=== PATIENT | male | born 1965 | race Caucasian/White ===

== ENCOUNTER → 2020-07-16 17:31 | Outpatient (CLI) | payer BC, SELFPAY ==
[2020-07-18 22:35] LABS: Covid-19 Nasal PCR Sendout Lex Not Detected
== END ==
PROVIDERS: PCP Family Medicine; Visit Provider Nurse Practitioner
DX: Z03.818 Encounter for observation for suspected exposure to other biological agents ruled out (principal)
CPT/HCPCS: U0004

== ENCOUNTER → 2021-02-04 08:49 | Outpatient (POV) | payer BC, SELFPAY | PROVIDERS: Visit Provider Dermatology | DX: Z00.00 Encounter for general adult medical examination without abnormal findings (principal) ==

== ENCOUNTER → 2021-12-13 12:18 | Outpatient (CLI) | payer OTHER, SELFPAY | PROVIDERS: Visit Provider Nurse Practitioner | DX: U07.1 COVID-19 (principal) | CPT/HCPCS: C9803; U0003; U0005 ==

== ENCOUNTER → 2021-12-20 09:43 | Outpatient (CLI) | payer OTHER, SELFPAY | PROVIDERS: Visit Provider Nurse Practitioner | DX: Z20.822 Contact with and (suspected) exposure to COVID-19 (principal) | CPT/HCPCS: C9803; U0003; U0005 ==

== ENCOUNTER 2023-01-07 17:36 | Emergency (ER) | payer BC, SELFPAY ==
[2023-01-07 17:50] VITALS: BP 122/88; PULSE 80; RESP 20; TEMP 37; O2SAT 94; BMI 31.3
--- NOTE | 2023-01-07 18:04 | EXP.UTC ---
Discharge Plan Disposition Patient Disposition: Home, Self-Care Condition: Good Prescriptions Prescriptions: New benzonatate 100 mg capsule 100 mg PO TID PRN (Reason: cough) Qty: 30 0RF guaifenesin [Mucinex] 600 mg tablet extended release 12hr 600 mg PO BID PRN (Reason: cough/congestion) Qty: 20 0RF azithromycin [Zithromax Z-Mickey] 250 mg tablet See Rx Instructions .ROUTE .COMPLEX 5 Days Qty: 6 0RF Rx Instructions: For 250 mg dose pack: take 500 mg today (day 1), then 250 mg for 4 days (days 2-5) prednisone [prednisone] 20 mg tablet 20 mg PO BID 5 Days Qty: 10 0RF albuterol sulfate [Proventil HFA] 90 mcg/actuation HFA aerosol inhaler 1 inh inhalation Q6H PRN (Reason: shortness of breath or wheezing) Qty: 8.5 0RF Referrals Follow up/Referrals: Louise Schmidt MD [Primary Care Provider] - See instructions Activity Restrictions/Add. Instructions Additional Instructions/Restrictions: Start antibiotic today. Be sure to complete entire prescription even if feeling better Monitor temp. Tylenol every 4 hours as needed and / or ibuprofen every 6 hours as needed ( As long as your primary care physician has told you that it ok to take both. For fever/aches/pains ER if no less than 101 despite Tylenol or Motrin Humidifier/vaporizer or hot steamy shower Inhaler every 4-6 hours as needed like we discussed. If unsure how to use it, ask pharmacist to demonstrate how. Should help open airways and improve cough, wheezing, and shortness of breath Mucinex during the day for your cough and cough suppressant only at night. Be sure to drink lots of water. *Tessalon Perles will not cause drowsiness but use at bedtime to help stop cough so that you may get some rest. *Start steroid today. Helps with inflammation therefore, cough and wheezing. Follow directions on the package. Reviewed side effects. Patient reports taking them before. Follow up IMMEDIATELY for new or worsening of symptoms OR no noticeable improvement over the next 48-72 hours. 911 immediately for any life threatening symptoms such as chest pain or difficulty breathing Clinical Impressions Clinical Impression: Sinusitis, Bronchitis Stand Alone Forms Stand Alone Forms: Work/School Release Instructions Patient Instructions: DI for Sinusitis, Sinusitis, Acute Bronchitis Discharge ED Provider: Kiley Tamez [facility] HPI General Stated complaint: cough mirta Mode of Arrival: Ambulatory Source of Information: Patient Limitations: No Limitations Time Seen by Provider: 01/07/23 18:04 Description of Symptoms (Recalled from Triage Doc. by RN): PATIENT C/O COUGH, COLD, HEADACHE, AND FEVERISH HEENT Symptoms (Recalled from RN notes): Yes Resp Symptoms (Recalled from RN notes): No Skin Symptoms (Recalled from RN notes): No MS Symptoms (Recalled from RN notes): No Functional Status (Recalled from RN notes): WNL History of Present Illness Provider Complaint: Patient states that he has been not feeling well for about a week States that he has been having cough, sinus congestion and pressure scratchy throat and feeling feverish States that he feels like he does when has a bad sinus infection and it is trying to turn into Bronchitis or something Related Data Previous Rx's Medication Instructions Recorded albuterol sulfate 90 mcg/actuation 1 inh inhalation Q6H PRN shortness 01/07/23 aerosol inhaler (Proventil HFA) of breath or wheezing #8.5 grams azithromycin 250 mg tablet See Rx Instructions PO .COMPLEX 5 01/07/23 (Zithromax Z-Mickey) days #6 tabs benzonatate 100 mg capsule 100 mg PO TID PRN cough #30 caps 01/07/23 guaifenesin 600 mg tablet, 600 mg PO BID PRN cough/congestion 01/07/23 extended release 12 hr (Mucinex) #20 tabs prednisone 20 mg tablet 20 mg PO BID 5 days #10 tabs 01/07/23 Allergies Allergy/AdvReac Type Severity Reaction Status Date / Time Penicillins Allergy Verified
[2023-01-07 18:20] VITALS: BP 122/88; PULSE 80; RESP 20; TEMP 37; O2SAT 94
== END 2023-01-07 18:25 | disposition home or self-care (01) ==
PROVIDERS: Emergency Provider Nurse Practitioner; PCP Family Medicine
DX: J32.9 Chronic sinusitis, unspecified (principal); J40 Bronchitis, not specified as acute or chronic
CPT/HCPCS: 99212; 99214; G0463

== ENCOUNTER → 2023-10-26 15:18 | Outpatient (POV) | payer BC, SELFPAY | PROVIDERS: PCP Family Medicine; Visit Provider Dermatology | DX: Z00.00 Encounter for general adult medical examination without abnormal findings (principal) ==

== ENCOUNTER 2023-12-15 16:41 | Emergency (ER) | payer BC, SELFPAY ==
[2023-12-15 17:00] VITALS: BP 119/78; PULSE 114; RESP 18; TEMP 37.8; O2SAT 97; BMI 31.1
--- NOTE | 2023-12-15 17:00 | EXP.UTC ---
Discharge Plan Disposition Patient Disposition: Home, Self-Care Condition: Good Prescriptions Prescriptions: New benzonatate [benzonatate] 100 mg capsule 100 mg PO TIDP PRN (Reason: Cough) Qty: 30 0RF oseltamivir [Tamiflu] 75 mg capsule 75 mg PO BID Qty: 10 0RF methylprednisolone 4 mg Tablets,Dose Pack 4 mg PO DIRECTED 6 Days Qty: 21 0RF Rx Instructions: Take 1 pack as directed for 6 days cefdinir 300 mg capsule 300 mg PO BID Qty: 20 0RF ondansetron 4 mg Tablet,Disintegrating 4 mg PO Q8H PRN (Reason: Nausea) Qty: 12 0RF No Action albuterol sulfate [Proventil HFA] 90 mcg/actuation HFA aerosol inhaler 1 inh inhalation Q6H PRN (Reason: shortness of breath or wheezing) Qty: 8.5 0RF rosuvastatin 20 mg tablet 20 mg PO DAILY Patient Comments: TAKE ONE TABLET BY MOUTH EVERY DAY Referrals Follow up/Referrals: Louise Schmidt MD [Primary Care Provider] - See instructions Activity Restrictions/Add. Instructions Additional Instructions/Restrictions: Drink plenty of fluids. Take tylenol or ibuprofen for pain or fever. Take the medications as directed. Follow up with your regular doctor. GO TO THE ER FOR ANY WORSENING SYMPTOMS Clinical Impressions Clinical Impression: Influenza B, Bronchitis Stand Alone Forms Stand Alone Forms: Work/School Release Instructions Patient Instructions: DI for Influenza -- Adult, Oseltamivir Discharge ED Provider: Oscar Washington [facility] General Stated complaint: chills, h/a Time Seen by Provider: 12/15/23 17:00 History of Present Illness Provider Complaint: He states that he has had fever, chills, body aches, and malaise since early this morning. He has been exposed to influenza. Also, he states that he has had a productive cough for the past 2 weeks. Related Data Home Medications Medication Instructions Recorded Confirmed rosuvastatin 20 mg tablet 20 mg PO DAILY 12/15/23 12/15/23 Previous Rx's Medication Instructions Recorded albuterol sulfate 90 mcg/actuation 1 inh inhalation Q6H PRN shortness 01/07/23 aerosol inhaler (Proventil HFA) of breath or wheezing #8.5 grams benzonatate 100 mg capsule 100 mg PO TIDP PRN Cough #30 caps 12/15/23 cefdinir 300 mg capsule 300 mg PO BID #20 caps 12/15/23 methylprednisolone 4 mg tablets in 4 mg PO DIRECTED 6 days #21 tabs 12/15/23 a dose pack ondansetron 4 mg disintegrating 4 mg PO Q8H PRN Nausea #12 tabs 12/15/23 tablet oseltamivir 75 mg capsule (Tamiflu) 75 mg PO BID #10 caps 12/15/23 Allergies Allergy/AdvReac Type Severity Reaction Status Date / Time Penicillins Allergy Verified 12/15/23 17:13 [facility] Disclaimer: The information contained in this section may have been updated after the patient was seen, as this information can be updated by other users. Social History Smoking Status: Never smoker alcohol intake: never current occupational status: employed Travel in the last 8 weeks: None ROS Obtained: Yes All systems reviewed & no additional complaints except as documented Constitutional Constitutional: Reports chills and Reports fever(s) Eyes Eyes: Denies eye discharge ENT Ears, Nose, Mouth, and Throat: Reports as per HPI Cardiovascular Cardiovascular: Denies chest pain Respiratory Respiratory: Denies shortness of breath, Reports chest congestion, Reports cough, Denies stridor and Denies wheezing Gastrointestinal Gastrointestingal: Reports nausea; Denies abdominal pain, constipation, cramping, diarrhea or vomiting Musculoskeletal Musculoskeletal: Denies arthralgias Integumentary/Breasts Skin/Breast: Denies rash Neurologic Neurologic: Denies paresthesias Allergic/Immunologic Allergic/Immunologic: Denies wheezing Physical Exam General General appearance: alert and in no apparent distress Eye Eye exam: Present normal appearance, PERRL and EOMI ENT ENT exam: Present mucous membranes moist and normal external ear exam Expanded ENT Exam External ear exam: Present normal external inspection TM/Canal exam: Bilateral TM: erythema and bulging Nose exam: Absent sinus tenderness Nasal speculum exam: Bilateral: normal Mouth exam: Present normal external inspection; Absent drooling Teeth exam: Present normal inspection Throat exam: Present tonsillar erythema and tonsillomegaly Neck Neck exam: Present normal inspection, full ROM and trachea midline; Absent tenderness, lymphadenopathy or thyromegaly Chest Chest inspection: Present normal inspection and symmetric chest wall rise; Absent tenderness or rash Respiratory Respiratory exam: Present normal lung sounds bilaterally; Absent respiratory distress, wheezes, stridor or accessory muscle use Cardiovascular Cardiovascular exam: Present regular rate, normal rhythm and normal heart sounds Abdominal Exam Abdominal exam: Present soft; Absent distention, tenderness, guarding, rebound or rigidity Extremities Exam Extremities exam: Present normal inspection, full ROM and normal capillary refill; Absent tenderness or calf tenderness Back Exam Back exam: Present normal inspection and full ROM; Absent tenderness Neurological Exam Neurological exam: Present alert and oriented X3 Psychiatric Psychiatric exam: Present normal affect and normal mood Skin Skin exam: Present warm, dry, intact and normal color Lymphatic Lymphatic Findings: no adenopathy Medical Decision Making Medical Records Medical records reviewed: No I reviewed the patient's medical records. Girma Inquiry Pt receiving controlled substance: No Lab Data Lab results reviewed: Yes I reviewed the patient's lab results.
[2023-12-15 17:24] LABS: UTC Influenza A Antigen Negative (Negative)
[2023-12-15 17:24] LABS: UTC Strep Screen (Rapid) Negative (Negative)
[2023-12-15 17:25] LABS: UTC Influenza B Antigen Positive (Negative)
[2023-12-15 17:42] VITALS: BP 119/78; PULSE 114; RESP 18; TEMP 37.8; O2SAT 97
== END 2023-12-15 17:42 | disposition home or self-care (01) ==
PROVIDERS: Emergency Provider Nurse Practitioner Family; PCP Family Medicine
DX: J10.1 Influenza due to other identified influenza virus with other respiratory manifestations (principal); J20.9 Acute bronchitis, unspecified; R51.9 Headache, unspecified; R50.9 Fever, unspecified; R05.9 Cough, unspecified; R11.0 Nausea; R53.81 Other malaise; M79.18 Myalgia, other site
CPT/HCPCS: 87804; 87880; 99212; 99214; G0463

== ENCOUNTER 2024-02-18 17:33 | Emergency (ER) | payer BC, SELFPAY ==
[2024-02-18 17:45] VITALS: BP 140/88; PULSE 66; RESP 17; TEMP 36.7; O2SAT 97; BMI 32.2
--- NOTE | 2024-02-18 17:56 | EXP.UTC ---
Discharge Plan Disposition Patient Disposition: Home, Self-Care Condition: Good Prescriptions Prescriptions: New azithromycin [Zithromax] 250 mg tablet 250 mg PO UD DOSE PK Qty: 6 0RF Rx Instructions: Take two (2) tablets today, then one (1) tablet days #2 thru #5 benzonatate 100 mg capsule 100 mg PO TIDP PRN (Reason: Cough) Qty: 30 0RF methylprednisolone 4 mg Tablets,Dose Pack 4 mg PO DIRECTED 6 Days Qty: 21 0RF Rx Instructions: Take 1 pack as directed for 6 days No Action rosuvastatin 20 mg tablet 20 mg PO DAILY Patient Comments: TAKE ONE TABLET BY MOUTH EVERY DAY Referrals Follow up/Referrals: Louise Schmidt MD [Primary Care Provider] - See instructions Activity Restrictions/Add. Instructions Additional Instructions/Restrictions: Drink plenty of fluids. Take tylenol or ibuprofen for pain or fever. Take the medications as directed. Follow up with your regular doctor. GO TO THE ER FOR ANY WORSENING SYMPTOMS Clinical Impressions Clinical Impression: Bronchitis Instructions Patient Instructions: Acute Bronchitis, DI for Acute Bronchitis Discharge ED Provider: Oscar Washington [facility] General Stated complaint: Chest,head congestion,NEELY,cough Time Seen by Provider: 02/18/24 17:56 History of Present Illness Provider Complaint: He states that for the past 4 days he has had chest congestion, sinus congestion, and a productive cough. Related Data Home Medications Medication Instructions Recorded Confirmed rosuvastatin 20 mg tablet 20 mg PO DAILY 12/15/23 02/18/24 Previous Rx's Medication Instructions Recorded azithromycin 250 mg tablet 250 mg PO UD DOSE PK #6 tabs 02/18/24 (Zithromax) benzonatate 100 mg capsule 100 mg PO TIDP PRN Cough #30 caps 02/18/24 methylprednisolone 4 mg tablets in 4 mg PO DIRECTED 6 days #21 tabs 02/18/24 a dose pack Allergies Allergy/AdvReac Type Severity Reaction Status Date / Time Penicillins Allergy Verified 12/15/23 17:13 [facility] Disclaimer: The information contained in this section may have been updated after the patient was seen, as this information can be updated by other users. Medical History (Updated 02/18/24 @ 18:13 by Oscar Washington APRN) Kidney stone Asthma Hyperlipidemia Social History Smoking Status: Never smoker alcohol intake: never current occupational status: employed Travel in the last 8 weeks: None ROS Obtained: Yes All systems reviewed & no additional complaints except as documented Constitutional Constitutional: Reports poor appetite Eyes Eyes: Reports system reviewed and no additional complaints, except as documented ENT Ears, Nose, Mouth, and Throat: Reports as per HPI Cardiovascular Cardiovascular: Reports system reviewed and no additional complaints, except as documented and Denies chest pain Respiratory Respiratory: Denies shortness of breath, Reports chest congestion, Reports cough, Denies stridor and Denies wheezing Gastrointestinal Gastrointestingal: Reports system reviewed and no additional complaints, except as documented; Denies abdominal pain, diarrhea or vomiting Musculoskeletal Musculoskeletal: Reports system reviewed and no additional complaints, except as documented and Denies arthralgias Integumentary/Breasts Skin/Breast: Reports system reviewed and no additional complaints, except as documented and Denies rash Neurologic Neurologic: Denies paresthesias Allergic/Immunologic Allergic/Immunologic: Denies wheezing Physical Exam General General appearance: alert and in no apparent distress Eye Eye exam: Present normal appearance, PERRL and EOMI ENT ENT exam: Present mucous membranes moist and normal external ear exam Expanded ENT Exam External ear exam: Present normal external inspection TM/Canal exam: Bilateral TM: erythema and bulging Nose exam: Absent sinus tenderness Nasal speculum exam: Bilateral: normal Mouth exam: Present normal external inspection; Absent drooling Teeth exam: Present normal inspection Throat exam: Present tonsillar erythema and tonsillomegaly Neck Neck exam: Present normal inspection, full ROM and trachea midline; Absent tenderness, lymphadenopathy or thyromegaly Chest Chest inspection: Present normal inspection and symmetric chest wall rise; Absent tenderness or rash Respiratory Respiratory exam: Present normal lung sounds bilaterally; Absent respiratory distress, wheezes, stridor or accessory muscle use Cardiovascular Cardiovascular exam: Present regular rate, normal rhythm and normal heart sounds Abdominal Exam Abdominal exam: Present soft; Absent distention, tenderness, guarding, rebound or rigidity Extremities Exam Extremities exam: Present normal inspection, full ROM and normal capillary refill; Absent tenderness or calf tenderness Back Exam Back exam: Present normal inspection and full ROM; Absent tenderness Neurological Exam Neurological exam: Present alert and oriented X3 Psychiatric Psychiatric exam: Present normal affect and normal mood Skin Skin exam: Present warm, dry, intact and normal color Lymphatic Lymphatic Findings: no adenopathy Medical Decision Making Medical Records Medical records reviewed: No I reviewed the patient's medical records. Girma Inquiry Pt receiving controlled substance: No Lab Data Lab results reviewed: Yes I reviewed the patient's lab results.
[2024-02-18 18:05] VITALS: BP 140/88; PULSE 66; RESP 17; TEMP 36.7; O2SAT 97
== END 2024-02-18 18:16 | disposition home or self-care (01) ==
PROVIDERS: Emergency Provider Nurse Practitioner Family; PCP Family Medicine
DX: J20.9 Acute bronchitis, unspecified (principal); R09.81 Nasal congestion; R05.9 Cough, unspecified; E78.5 Hyperlipidemia, unspecified
CPT/HCPCS: 99212; 99214; G0463

== ENCOUNTER 2025-08-02 18:30 | Outpatient (CLI) | payer BC, SELFPAY ==
--- OUTSIDE RECORDS SUMMARY | 2024-08-09 05:30 | XMS_ITS ---
Author Organization 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 Name Role Phone Lyn Schmidt Primary Care Provider Lidia Sanabria Unavailable [phone] Allergies Allergen (clinical drug ingredient) Drug/Non Drug Allergy documented on EMR Reaction Allergy Type Onset Date Status Penicillin Unknown Drug Allergy Active Results Component Value Reference Range Notes P-Comprehensive Metabolic Pa rubio (CMP) Reviewed date:08/10/2024 01:08:19 PM Interpretation:Normal Performing Lab: Notes/Report: Test performed by [facility], [address] , [address], [place] [address] Ke Beck MD, Optical Coating Technician CLIA: [id number] Sodium 143 135-145 mmol/L Potassium 4.2 3.5-5.3 mmol/L Chloride 105 97-108 mmol/L CO2 27 22-32 mmol/L Glucose 86 65-99 mg/dL BUN 16 8-23 mg/dL Creatinine 0.97 0.70-1.30 mg/dL Calcium 9.5 8.6-10.4 mg/dL eGFR by Creatinine 89 >59 mL/min/1.73m2 Protein 6.7 6.0-8.3 g/dL Albumin 4.4 3.5-5.3 g/dL Alkaline Phosphatase 93 40-129 IU/L ALT (SGPT) 35 <5-55 IU/L AST (SGOT) 22 <5-46 IU/L Bilirubin, Total 0.6 <0.2-1.2 mg/dL A/G Ratio 1.9 1.1-2.5 P-Lipid Panel Reviewed date:08/10/2024 01:08:28 PM Interpretation:hdl 39 Performing Lab: Notes/Report: Test performed by [facility] [address] [place] [address] , [address], [place] [address] Ke Beck MD, Optical Coating Technician CLIA: [id number] Cholesterol 96 <200 mg/dL Triglycerides 66 <150 mg/dL HDL Cholesterol 39 >39 mg/dL Cholesterol / HDL Ratio 2.46 0.00-4.99 Ratio Non-HDL Cholesterol 57 <130 mg/dL LDL Cholesterol (Calculation) 44 <130 mg/dL LDL Cholesterol Levels* Less than 100 mg/dL Optimal 100 to 129 mg/dL Near Optimal/ Above Optimal 130 to 159 mg/dL Borderline High 160 to 189 mg/dL High 190 mg/dL and above Very High * Categories as recommended by the 2004 ATPIII guidelines LDL/HDL Ratio 1.1 <3.3 Ratio LDL Cholesterol Patient History Test Date: 12/13/2023 LDL Results: 85 Units: mg/dL % Change: - Test Date: 08/09/2024 LDL Results: 44 Units: mg/dL % Change: -48% REASON FOR VISIT checkup, Needs labs, Tdap, shingles, & flu vaccines Medications Medication SIG (Take, Route, Frequency, Duration) Notes Start Date End Date Status Nabumetone 500 MG 1 tablet Orally Twic e a day; Duration: 10 day(s) 10/15/2023 Not-Taking Rosuvastatin Calcium 10 MG 1 tablet Orally At Bed Time; Duration: 90 days Active Co Q-10 200 MG as directed Orally Active Vitamin B-12 1000 MCG as directed orally once a day Not-Taking Flomax 0.4 MG 1 capsule Orally Onc e a day 10/15/2023 Not-Taking Immunizations Vaccine Route Administration Date Status Comme nts Tetanus Tdap-Adacel (over 7yrs) IM Intramuscular 08/09/2024 Administered Vital Signs Blood pressure systolic 112 mm Hg 08/09/20 24 Blood pressure diastolic 82 mm Hg 024 Heart Rate 69 /min 08/09/2024 Height 67 in 08/09/2024 Weight 193.4 lbs 08/09/2024 BMI 30.29 kg/m2 08/09/2024 Encounters Encounter Location Date Provider Diagnosis [facility] [address] [place] [id number] 08/09/2024 Lidia Sanabria Mixed hyperlipidemia E78.2 and Pain, joint, knee, right M25.561 Assessments Encounter Date Diagnosis (ICD Code) Assessment Notes Treatment Notes Treatment Clinical Notes Section Notes 08/09/2024 Mixed hyperlipidemia (ICD-10 - E78.2) 08/09/2024 Pain, joint, knee, right (ICD-10 - M25.561) Patient has been doing exercises and they seem to be helping. He would like to wait on an x-ray. Plan Of Treatment Medication Medication Name Sig Start Date Stop Date Notes Rosuvastatin Calcium 10 MG 1 tablet Oral ly At Bed Time; Duration: 90 days Treatment Notes Assessment Notes Pain, joint, knee, right Patient has bee n doing exercises and they seem to be helping. He would like to wait on an x-ray. Next Appt Details Follow Up: via phone to repo rt test results, Reason: Progress Notes * KAL HADOB:1965 (59 yo M)Acc No.[id number]:08/09/2024 Progress Notes Patient: KAL BLACKWELL Provider: VALERIY Taveras :1965 A ge:58 Y S ex:Male Date:08/09/2024 Address:[facility] [place], [id number] Pcp:Lyn Schmidt Subjective: * Chief Complaints: * 1 . Checkup. 2. Needs labs, Tdap, shingles, & flu vaccines. * HPI: C ardiology: The patient is here today for a check up. Pt states he is doing good and denies any new concerns today. Pt states he is fasting. Pt states he would like to get his Simvastatin sent to [facility] pharmacy. Denies : Chest Pain. D enies : Short of Breath. D enies : Dizziness. D enies : Palpitations. * ROS: D ERMATOLOGY: no R lb. n o H larry. G ASTROENTEROLOGY: no N ausea. n o V omiting. n o D iarrhea.? U ROLOGY: no D ifficulty urinating. n o B lood in urine. * Medical History: I nsomnia, COVID 19 vaccine, Moderna Oct 2020, Nov 2020, COVID 19 Booster, Moderna, 10/22/21. * Surgical History: n one . * [facility] Diagn[facility]ic [facility] left side [facility]. * Family History: F ather: , heart disease, CHF. M other: alive, thyroid problems. 1 brother(s) , 1 sister(s) - healthy. 1 daughter(s) - healthy. . * Social History: C affeine: yes, frequency:pop. Exercise: no. Home smoke detector use: yes. Marital Status: . 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 Recreational drug use: no. Alcohol: Type: , Frequency:social ,Years: , Determination:. * Medications: T aking Co Q-10 200 MG Capsule as directed Orally , Taking Rosuvastatin Calcium 10 MG Tablet 1 tablet Orally At Bed Time , Not-Taking Nabumetone 500 MG Tablet 1 tablet Orally Twice a day , Not-Taking Flomax 0.4 MG Capsule 1 capsule Orally Once a day , Not-Taking Vitamin B-12 1000 MCG Tablet as directed orally once a day , Medication List reviewed and reconciled with the patient * Allergies: P enicillin. Objective: * Vitals: W t:193.4, Temp:98.4, BP:112/82, HR:69, Nurse:BROOKE, Ht: 67, BMI:30.29. * Examination: G eneral Examination: General Appearance: N AD. H EENT: u nremarkable.?Oral cavity: n o lesions, mucosa moist and WNL, no erythema. N stephanie: s upple, no lymphadenopathy. C hest: n ormal shape and expansion. H eart: R SR. L ungs: c lear to auscultation. A bdomen: bowel sounds present, soft and nontender, no organomegaly or masses, no masses palpated. N eurologic Exam: I ntact, gait normal. S kin: n ormal, no rash. P eripheral pulses: n ormal (2+) bilaterally. E xtremities: n o leg edema, right knee with ttp along the medial aspect of the joint and some mild tenderness, full ROM. ? Assessment: * Assessment: 1. M ixed hyperlipidemia - E78.2 (Primary) 2 . P ain, joint, knee, right - M25.561 Plan: * Treatment: Value Reference Range A /G Ratio 1.9 1.1-2.5 - * A lbumin 4.4 3.5-5.3 - g/dL * A lkaline Phosphatase 93 40-129 - IU/L * A LT (SGPT) 35 <5-55 - IU/L * A ST (SGOT) 22 <5-46 - IU/L * B ilirubin, Total 0.6 <0.2-1.2 - mg/dL * B UN 16 8-23 - mg/dL * C alcium 9.5 8.6-10.4 - mg/dL * C hloride 105 97-108 - mmol/L * C O2 27 22-32 - mmol/L * C reatinine 0.97 0.70-1.30 - mg/dL * G lucose 86 65-99 - mg/dL * P otassium 4.2 3.5-5.3 - mmol/L * S odium 143 135-145 - mmol/L * P rotein 6.7 6.0-8.3 - g/dL * e GFR by Creatinine 89 >59 - mL/min/1.73m2 * DanieleLidia Lezama 08/10/2024 1: 08:15 PM > see TE ?LAB: P-Lipid Panel (Collection Date & Time - 08/09/2024 09:05 AM)?hdl 39* Value Reference Range C holesterol / HDL Ratio 2.46 0.00-4.99 - Ratio * C holesterol 96 <200 - mg/dL * H DL Cholesterol 39 L >39 - mg/dL * L DL Cholesterol (Calculation) 44 <130 - mg/d L * L DL/HDL Ratio 1.1 <3.3 - Ratio * N on-HDL Cholesterol 57 <130 - mg/dL * T riglycerides 66 <150 - mg/dL * DanieleLidia Lezama 08/10/2024 1: 08:23 PM > see TE 2.?Pain, joint, knee, right? Notes: Patient has been doing exercises and they seem to be helping. He would like to wait on an x-ray.?? * Immunizations: Tetanus Tdap-Adacel (over 7yrs) : 0.5 mL (Route: Intramuscular) given by Andreina Martinez on Right Deltoid * Follow Up: v ia phone to report test results * Images: Billing Information: * Visit Code: 13584 Office Visit, Est Pt., Level 4. * Procedure Codes: * Electronic signature of VALERIY Hart on 08/03/2025 at 12:02 PM EDT Sign off status: Pending * Provider: VALERIY Taveras Date: 08/09/2024 Generated for Shobhai ng/Omari/eTransmitting on: 08/03/2025 12:02 PM EDT History and Physical Notes * HPI (History of Present Illness) Category Sub-Category Detail Notes Category Not es Cardiology Short of Breath Chest Pain Palpitations Dizziness Examination Category Sub-Category Detail Notes Category Not es General Examination HEENT: unremarkable Heart: RSR Lungs: clear to auscultatio n Abdomen: bowel sounds present , soft and nontender, no organomegaly or masses, no masses palpated Extremities: no leg edema, right knee with ttp along the medial aspect of the joint and some mild tenderness, full ROM General Appearance: NAD Skin: normal, no rash Neurologic Exam: Intact, gait normal Neck: supple, no lymphaden opathy Oral cavity: no lesions, mucosa m oist and WNL, no erythema Peripheral pulses: normal (2+) bilatera lly Chest: normal shape and exp ansion
[2025-08-02 20:26] LABS: Influenza A, PCR Not Detected (NotDetected); Influenza B, PCR Not Detected (NotDetected)
[2025-08-03 04:36] LABS: Coronavirus 19, PCR Detected (NotDetected)
--- OUTSIDE RECORDS SUMMARY | 2025-08-03 12:02 | XMS_ITS | Patient Health Record ---
Author Organization [facility] Address [address] [facility] [address] [place] [id number] Care Team Providers Care It Applications Analyst Name Role Phone Lyn Schmidt Primary Care Provider WadeLidia ferro Unavailable [phone] Allergies Allergen (clinical drug ingredient) Drug/Non Drug Allergy documented on EMR Reaction Allergy Type Onset Date Status Penicillin Unknown Drug Allergy Active Results Component Value Reference Range Notes P-Comprehensive Metabolic Pa rubio (CMP) Reviewed date:08/10/2024 01:08:19 PM Interpretation:Normal Performing Lab: Notes/Report: Test performed by [facility] [employer] [address] [place] [address] , [address], [place] [address] Ke Beck MD, [place] CLIA: [id number] Sodium 143 135-145 mmol/L Potassium 4.2 3.5-5.3 [...] 39 Performing Lab: Notes/Report: Test performed by [facility] [address] [place] [address] , [address], [place] [address] Ke Beck MD, [place] CLIA: [id number] Cholesterol 96 <200 mg/dL Triglycerides 66 <150 [...] Results: 44 Units: mg/dL % Change: -48% Medications Medication SIG (Take, Route, Frequency, Duration) [...] Vaccine Route Administration Date Status Comme nts COVID 19 Moderna Unknown 11/13/2020 Administered COVID 19 Moderna Unknown 12/11/2020 Administered COVID 19 Moderna Unknown 10/22/2021 Administered Fluzone PF Quad (6-35 months) Unknown 08/31/2023 Administered Tetanus Tdap-Adacel (over 7yrs) IM Intramuscular 11/14/2008 Administered Tetanus Tdap-Adacel (over 7yrs) IM Intramuscular 08/09/2024 Administered xFluzone (6mos and older)-trivalent Unknown 09/21/2022 Administered Problems Problem Type SNOMED Code ICD Code Onset Dates Problem Status W/U Status Risk Notes Problem Mixed hyperlipidemia (475943232) Mixed hyperlipidemia (E78.2) Active confirmed Problem Localized, primary osteoarthritis of the hand (465212482) Primary osteoarthritis, right hand (M19.041) Active confirmed Problem Localized, primary osteoarthritis of the hand (590171984) Primary osteoarthritis, left hand (M19.042) Active confirmed Problem Hip pain (81051197) Hip pain (M25.559) Active confirmed Problem Kidney stone (23136416) Kidney stone (N20.0) Active confirmed Problem Meralgia paresthetica (98631512) Meralgia paresthetica of left side (G57.12) Active confirmed Problem Benign prostatic hypertrophy without outflow obstruction (679605711) Benign prostatic hyperplasia without lower urinary tract symptoms (N40.0) Active confirmed Vital Signs Heart Rate 69 /min 08/09/2024 Blood pressure diastolic 82 mm Hg 08/09/2024 Height 67 in 08/09/2024 Blood pressure systolic 112 mm Hg 08/09/2024 Weight 193.4 lbs 08/09/2024 BMI 30.29 kg/m2 08/09/2024 Encounters Encounter Location Date Provider Diagnosis [facility] [address] [facility] [address] [place] [phone] 08/09/2024 Lidia Sanabria Mixed hyperlipidemia E78.2 and Pain, joint, knee, right M25.561 [facility] [address] [facility] [address] [place], [place] [phone] 08/10/2024 Lidia Sanabria [facility] [address] [facility] [address] [facility] [address] [place], [place] [id number] 10/09/2024 Lyn Schmidt Assessments Encounter Date Diagnosis (ICD Code) Assessment Notes Treatment Notes Treatment Clinical Notes Section Notes 08/09/2024 Mixed hyperlipidemia (ICD-10 - E78.2) 08/09/2024 Pain, joint, knee, right (ICD-10 - M25.561) Patient has been doing exercises and they seem to be helping. He would like to wait on an x-ray. Plan Of Treatment Pending Test Test Name Order Date Stone analysis (renal) 10/21/2023 Insurance Providers Payer Name Payer Address Payer Phone Subscriber Number Group Number Insured Name Patient Relationship to Insured Coverage Start Date Coverage End Date JULIANA BECK [employer] [facility] [address] [place] [address] [id number] KAL HA Self - patient is the insured Medical (General) History Medical History History ICD Code insomnia COVID 19 vaccine, Moderna Oct 2020, Nov 2020 COVID 19 Booster, Moderna, 10/22/21 Surgical History Surgery Date(Month/Year) none Hospitalization History Reason Date(Month/Year) none [facility]- Numbness on his left side 04/22/2020
== END 2025-08-02 23:59 | disposition home or self-care (01) ==
LOC: LAB.DROPOF 08-03 12:01
PROVIDERS: PCP Nurse Practitioner; Visit Provider Nurse Practitioner
DX: J06.9 Acute upper respiratory infection, unspecified (principal)
CPT/HCPCS: 87631